=== PATIENT | female | born 1975 | race Two or more races ===

== ENCOUNTER 2021-04-07 06:09 | Day surgery (SDC) | payer OTHER ==
[~2021-04-07 06:09] MED LIST: SYNTHROID137 MCG PO; ZESTRIL5 MG PO
[2021-04-07] MEDS ORDERED: ULTRACET PO (11:06)
[2021-04-07] MEDS ORDERED: PROTONIX40 MG PO (11:07)
== END 2021-04-07 14:35 | disposition home or self-care (01) ==
LOC: CIR.AMB 06:09
PROVIDERS: ATTEND Surgery
DX: K80.10 Calculus of gallbladder with chronic cholecystitis without obstruction (principal); Z20.822 Contact with and (suspected) exposure to COVID-19